=== PATIENT | male | born 1965 | race Caucasian/White ===

== ENCOUNTER 2016-09-06 15:09 | Emergency (ER) | payer OTHER ==
[2016-09-06 15:33] LABS: BASOPHIL 0.4 % (0-2); EOSINOPHIL 0.8 % (0-5); HCT 36.5 % (42.0-52.0); HGB 12.1 g/dl (13.2-18.0); LYMPHOCYTE 6.6 % (15-48); MCH 32.4 pg (25.0-31.0); MCHC 33.2 g/dL (32.0-36.0); MCV 97.6 fL (78.0-100.0); MONOCYTE 12.9 % (0-12); MPV 9.1 fL (6.0-9.5); NEUTROPHIL 79.3 % (41-80); PLT 465 K/uL (150-400); RDW 11.6 % (11.5-14.0)
[2016-09-06 15:38] LABS: RBC 3.74 M/uL (4.70-6.00)
[2016-09-06 15:40] LABS: LACTIC ACID 1.5 mmol/L (0.5-2.2)
[2016-09-06 15:44] LABS: ALBUMIN 3.7 g/dL (3.5-5.0); BILIRUBIN - TOTAL 0.3 mg/dL (0.1-1.0); CREATININE 0.9 mg/dL (0.7-1.2); GLOBULIN (CALCULATION) 3.8 g/dL (2.2-4.2); POTASSIUM 5.4 mmol/L (3.5-5.1); TOTAL PROTEIN 7.5 g/dL (6.4-8.3)
== END 2016-09-06 17:36 | disposition home or self-care (01) ==
LOC: FER 15:09
PROVIDERS: Internal Medicine
DX: J44.0 Chronic obstructive pulmonary disease with (acute) lower respiratory infection (principal); J20.9 Acute bronchitis, unspecified; J44.1 Chronic obstructive pulmonary disease with (acute) exacerbation; C32.9 Malignant neoplasm of larynx, unspecified; Z87.891 Personal history of nicotine dependence
CPT/HCPCS: 36415; 36600; 71010; 80053; 82803; 83605; 84484; 85025; 87040; 93005; 94640; J2930